=== PATIENT | male | born 1930 | race African-American/Black ===

== ENCOUNTER 2017-06-23 04:52 | Observation (INO) | payer OTHER ==
[~2017-06-23] VITALS: Ht 185.4 cm; Wt 73.5 kg
[2017-06-23 06:49] LABS: BASOPHILS % 0.3 % (0.0-2.0); EOSINOPHILS % 0.4 % (0.0-5.0); HEMATOCRIT. 40.9 % (42.0-52.0); HEMOGLOBIN. 13.4 g/dL (14.0-18.0); LYMPHOCYTES % 14.2 % (20.0-50.0); MEAN CORPUSCULAR HEMOGLOBIN 29.1 pg (28.0-32.0); MEAN CORPUSCULAR VOLUME 88.5 fL (80.0-94.0); MEAN PLATELET VOLUME 9.4 fl (7.4-10.4); MONOCYTES % 5.6 % (2.0-8.0); NEUTROPHILS % 79.5 % (40.0-76.0); PLATELET 170 x1000/uL (130-400); RED BLOOD CELL COUNT 4.62 mill/uL (4.7-6.1); RED CELL DISTRIBUTION WIDTH 14.3 % (11.6-14.6)
[2017-06-23 06:56] LABS: PROTHROMBIN TIME 10.4 sec (9.4-11.6)
[2017-06-23 07:22] LABS: CHLORIDE 104 mEq/L (98-107); TROPONIN I < 0.02 ng/mL (0.00-0.04)
[2017-06-23 07:48] LABS: KETONES URINE NEGATIVE (NEGATIVE); LEUKOCYTE ESTERASE URINE NEGATIVE (NEGATIVE); NITRITE URINE NEGATIVE (NEGATIVE); OCCULT BLOOD URINE 3+ (NEGATIVE); PROTEIN URINE NEGATIVE (NEGATIVE); SPECIFIC GRAVITY URINE 1.011 (1.005-1.030); UROBILINOGEN URINE 0.2 E.U./dL (0.2-1.0)
[2017-06-23 08:03] LABS: CLARITY URINE CLEAR (CLEAR); COLOR URINE YELLOW (YELLOW)
[2017-06-23 14:00] VITALS: BP 150/74
[2017-06-23 14:13] VITALS: BP 151/74
[2017-06-23] MEDS ORDERED: OMEP20CA10 PO (14:48)
[2017-06-23] MEDS ORDERED: HYDR25TA PO (14:48)
[2017-06-23 16:00] VITALS: BP 121/66
[2017-06-23] MEDS: SODIUM CHLORIDE 0.9% 1,000 ML IV SCH (16:56)
[2017-06-23] MEDS ORDERED: DIPHENHYDRAMINE 50MG/ML VIAL IV PRN (18:15)
[2017-06-23] MEDS ORDERED: CLONIDINE 0.1MG TABLET PO PRN (18:15)
[2017-06-23] MEDS ORDERED: ONDANSETRON HCL 4MG/2ML VIAL IV PRN (18:15)
[2017-06-23] MEDS ORDERED: MAGNESIUM/ALUMINUM HYDROXIDE/SIMETHICONE 30ML UDC PO PRN (18:15)
[2017-06-23] MEDS ORDERED: ACETAMINOPHEN 325MG TABLET PO PRN (18:15)
[2017-06-23 20:00] VITALS: BP 138/80
[2017-06-23] MEDS: HYDROCORTISONE ACETATE 25MG SUPP PR SCH (20:32)
[2017-06-23] MEDS ORDERED: TAMSULOSIN HCL 0.4MG SR CAPSULE PO SCH (21:00)
[2017-06-23] MEDS ORDERED: ZOLPIDEM TARTRATE 5MG TABLET PO PRN (21:00)
[2017-06-24] VITALS: BP 107/61
[2017-06-24 04:00] VITALS: BP 143/86
[2017-06-24 07:19] LABS: BASOPHILS % 0.4 % (0.0-2.0); EOSINOPHILS % 2.6 % (0.0-5.0); HEMATOCRIT. 39.4 % (42.0-52.0); HEMOGLOBIN. 13.4 g/dL (14.0-18.0); LYMPHOCYTES % 29.8 % (20.0-50.0); MEAN CORPUSCULAR HEMOGLOBIN 29.8 pg (28.0-32.0); MEAN CORPUSCULAR VOLUME 87.4 fL (80.0-94.0); MEAN PLATELET VOLUME 9.5 fl (7.4-10.4); MONOCYTES % 14.5 % (2.0-8.0); NEUTROPHILS % 52.7 % (40.0-76.0); PLATELET 155 x1000/uL (130-400); RED BLOOD CELL COUNT 4.51 mill/uL (4.7-6.1)
[2017-06-24 08:00] VITALS: BP 116/64
[2017-06-24 08:30] LABS: CHLORIDE 105 mEq/L (98-107)
[2017-06-24] MEDS: HYDROCORTISONE ACETATE 25MG SUPP PR SCH (09:20)
[2017-06-24 12:00] VITALS: BP 155/103
[2017-06-24] MEDS: SODIUM CHLORIDE 0.9% 1,000 ML IV SCH (12:30)
[2017-06-24 16:00] VITALS: BP 160/92
[2017-06-24 16:06] VITALS: BP 133/86
== END 2017-06-24 17:32 | disposition home or self-care (01) ==
LOC: ER 05:07 → INTOOBSV 08:57 → 5WST 08:57 → EDBEDREQ 09:07 → EDBEDREQTM 09:07 → ENRESERV 12:48 → 5WST 14:08
PROVIDERS: ADMIT Internal Medicine; ATTEND Internal Medicine
DX: N40.1 Benign prostatic hyperplasia with lower urinary tract symptoms (principal); N13.8 Other obstructive and reflux uropathy; R97.20 Elevated prostate specific antigen [PSA]; I10 Essential (primary) hypertension; K21.9 Gastro-esophageal reflux disease without esophagitis; I51.7 Cardiomegaly; K57.30 Diverticulosis of large intestine without perforation or abscess without bleeding
CPT/HCPCS: 36415; 51702; 71045; 74176; 80048; 80053; 81001; 82270; 83690; 83880; 84484; 85025; 85610; 86850; 86900; 86901; 93005; 96360; 96361; 99285; G0378; J7030; A4315